=== PATIENT | female | born 1990 | race Two or more races ===

== ENCOUNTER 2016-10-17 09:42 | Inpatient (IN) | payer MEDICAID ==
[~2016-10-17] VITALS: Ht 160 cm; Wt 100.6 kg
[2016-10-17] MEDS ORDERED: SOD CHLORIDE 0.9% 1,000 ML IV STA (11:14)
[2016-10-17] MEDS ORDERED: ONDANSETRON 4 MG INJ IV STA (11:14)
[2016-10-17] MEDS ORDERED: DEXTROSE 5%-0.9% NACL 1,000 ML IV STA (11:15)
[2016-10-17 11:48] LABS: ADD SCAN DIFF NO
[2016-10-17 11:52] LABS: BASOPHILS % 0.1 % (0.0-2.0); EOSINOPHILS % 0.3 % (0.0-7.0); HEMATOCRIT 41.8 % (37.0-47.0); HEMOGLOBIN 14.4 g/dl (12.0-16.0); LYMPHOCYTES # 2.3 10^3/ul (0.8-2.9); LYMPHOCYTES % 22.7 % (15.0-51.0); MEAN CORPUSCULAR HEMOGLOBIN 28.2 pg (29.0-33.0); MEAN CORPUSCULAR HGB CONC 34.4 g/dl (32.0-37.0); MEAN CORPUSCULAR VOLUME 81.8 fl (82.0-101.0); MEAN PLATELET VOLUME 9.1 fl (7.4-10.4); MONOCYTE # 0.6 10^3/ul (0.3-0.9); MONOCYTES % 6.4 % (0.0-11.0); PLATELET COUNT 261 10^3/UL (140-415); RED BLOOD COUNT 5.11 10^6/ul (4.20-5.40); RED CELL DISTRIBUTION WIDTH 13.1 % (11.5-14.5); WHITE BLOOD COUNT 9.9 10^3/ul (4.8-10.8)
[2016-10-17 11:53] LABS: ADD UMIC YES; URINE BILIRUBIN (Dip) NEGATIVE (NEGATIVE); URINE BLOOD (Dip) 1+ (NEGATIVE); URINE COLOR LT. YELLOW (YELLOW); URINE GLUCOSE (Dip) NEGATIVE (NEGATIVE); URINE KETONES (Dip) NEGATIVE (NEGATIVE); URINE LEUKOCYTE ESTERASE (Dip) NEGATIVE (NEGATIVE); URINE NITRITE (Dip) NEGATIVE (NEGATIVE); URINE TOTAL PROTEIN (Dip) NEGATIVE (NEGATIVE); URINE UROBILINOGEN (Dip) 0.2 E.U./dL (0.1-1.0)
--- NOTE | 2016-10-17 12:01 | RADRPT ---
PROCEDURE: US OB. CLINICAL INDICATION: Vomiting TECHNIQUE: Transabdominal views of the pelvis are available for review. COMPARISON: No prior studies are available for comparison. FINDINGS: There is a single intrauterine gestation with the crown-rump length measuring 2.0 cm and the gestati onal sac measuring 3.9 cm, corresponding to a gestational age of 9 weeks and 0 days. The heart rate is noted at 171 bpm. The ovaries are normal in size and echogenicity. The right ovary measures 3.0 x 1.6 x 2.0 cm. The left ovary measures 4.3 x 2.2 x 3.1 cm. There is no free fluid. RPTAT: AA IMPRESSION: Single live intrauterine with an estimated gestational age of 9 weeks and 0 days, based on ultrasound measurements. LIAM based on ultrasound measurements is 05/22/2017. .James Garcia MD, Date Time Electronically viewed and signed by .James Garcia MD, on 10/17/2016 12:01 .S/
[2016-10-17 12:19] LABS: URINE RBCS 0-2 /HPF (0)
[2016-10-17 12:20] LABS: BACTERIA,URINE FEW
[2016-10-17 12:21] LABS: ALBUMIN/GLOBULIN RATIO 1.11; BILIRUBIN,INDIRECT 0.1 mg/dl (0-1.1); BILIRUBIN,TOTAL 0.1 mg/dl (0.2-1.3); CREATININE 0.4 mg/dl (0.44-1.00); POTASSIUM 3.9 mmol/L (3.5-5.1); TOTAL PROTEIN 7.6 g/dl (6.1-8.1)
[2016-10-17] MEDS ORDERED: ACETAMINOPHEN 325 MG TAB PO PRN (13:30)
[2016-10-17] MEDS ORDERED: ONDANSETRON 4 MG INJ IV PRN (13:30)
--- NOTE | 2016-10-17 13:54 | ERA ---
ER Documentation Chief Complaint Date/Time DATE: 10/17/16 TIME: 13:52 Chief Complaint 8 weeks with vomiting HPI Patient is a 18-year-old female with previous hyperemesis who presents with hyperemesis. The patient says that she has been vomiting for the past 2 weeks. She says that she is approximately 8 weeks . She was taking Zofran and Keflex recently but is still having vomiting. She cannot keep even fluids down. She is a and had vomiting with the previous 2 pregnancies as well. Upon review of old medical records the patient one previous visit to the ER in 2008. She does not know the name of her primary doctor. ROS All systems reviewed and are negative except as per history of present illness. Allergies Allergies: Coded Allergies: No Known Allergy (Unverified , 10/17/16) PMhx/Soc Medical and Surgical Hx: pt denies Medical Hx, pt denies Surgical Hx Hx Alcohol Use: No Hx Substance Use: No Hx Tobacco Use: No Smoking Status: Never smoker FmHx Family History: diabetes Physical Exam Vitals Vital Signs Date Time Temp Pulse Resp B/P Pulse Ox O2 Delivery O2 Flow Rate FiO2 10/17/16 10:07 98.1 89 18 124/69 99 Physical Exam Const: No acute distress Head: Atraumatic Eyes: Normal Conjunctiva ENT: Normal External Ears, Nose and Mouth. Neck: Full range of motion..~ No meningismus. Resp: Clear to auscultation bilaterally Cardio: Regular rate and rhythm, no murmurs Abd: Soft, non tender, non distended. Normal bowel sounds Skin: No petechiae or rashes Back: No midline or flank tenderness Ext: No cyanosis, or edema Neur: Awake and alert Psych: Normal Mood and Affect Result Diagram: 10/17/16 1130 10/17/16 1130 Results 24 hrs Laboratory Tests Test 10/17/16 11:27 10/17/16 11:30 Urine Color LT. YELLOW Urine Clarity CLEAR Urine pH 7.0 Urine Specific [place] 1.015 Urine Ketones NEGATIVE Urine Nitrite NEGATIVE Urine Bilirubin NEGATIVE Urine Urobilinogen 0.2 E.U./dL Urine Leukocyte Esterase NEGATIVE Urine Microscopic RBC 0-2/HPF Urine Microscopic WBC 2-5/HPF Urine Bacteria FEW Urine Yeast FEW Urine Hemoglobin 1+ Urine Glucose NEGATIVE% Urine Total Protein NEGATIVE White Blood Count 9.910^3/ul Red Blood Count 5.1110^6/ul Hemoglobin 14.4g/dl Hematocrit 41.8% Mean Corpuscular Volume 81.8fl Mean Corpuscular Hemoglobin 28.2pg Mean Corpuscular Hemoglobin Concent 34.4g/dl Red Cell Distribution Width 13.1% Platelet Count 49293^3/UL Mean Platelet Volume 9.1fl Neutrophils % 70.0% Lymphocytes % 22.7% Monocytes % 6.4% Eosinophils % 0.3% Basophils % 0.1% Nucleated Red Blood Cells % 0.0/100WBC Neutrophils # 7.010^3/ul Lymphocytes # 2.310^3/ul Monocytes # 0.610^3/ul Eosinophils # 0.010^3/ul Basophils # 0.010^3/ul Nucleated Red Blood Cells # 0.010^3/ul Sodium Level 135mmol/L Potassium Level 3.9mmol/L Chloride Level 106mmol/L Carbon Dioxide Level 21mmol/L Anion Gap 12 Blood Urea Nitrogen 6mg/dl Creatinine 0.40mg/dl Glucose Level 103mg/dl Calcium Level 9.0mg/dl Total Bilirubin 0.1mg/dl Direct Bilirubin 0.00mg/dl Indirect Bilirubin 0.1mg/dl Aspartate Amino Transf (AST/SGOT) 20IU/L Alanine Aminotransferase (ALT/SGPT) 45IU/L Alkaline Phosphatase 55IU/L Total Protein 7.6g/dl Albumin 4.0g/dl Globulin 3.60g/dl Albumin/Globulin Ratio 1.11 Lipase 29U/L Beta HCG, Quantitative 662635.0mIU/ml Current Medications Medications (Trade) Dose Ordered Sig/Tyler Route PRN Reason Start Time Stop Time Status Last Admin Dose Admin Sodium Chloride (NS) 1,000 ml @ 1,000 mls/hr Q1H STAT IV 10/17/16 11:14 10/17/16 12:13 DC 10/17/16 11:43 Ondansetron HCl 4 mg 4 mg ONCE STAT IV 10/17/16 11:14 10/17/16 11:16 DC 10/17/16 11:42 Dextrose/Sodium Chloride (D5-NS) 1,000 ml @ 500 mls/hr Q2H STAT IV 10/17/16 11:15 10/17/16 13:14 DC 10/17/16 11:15 Ondansetron HCl (Zofran Inj) 4 mg BRIDGE ORDER PRN IV NAUSEA AND/OR VOMITING 10/17/16 13:30 10/18/16 13:29 Acetaminophen (Tylenol Tab) 650 mg ER BRIDGE PRN PO MILD PAIN/FEVER 10/17/16 13:30 10/18/16 13:29 Procedures/MDM Ultrasound shows a intrauterine per radiology. Patient is a 26-year-old female presents with acute hyperemesis gravidarum. Laboratory studies are basically normal but the patient has failed outpatient treatment at this time. She has already using Zofran at home and is unable to keep down fluids. She has no signs of preeclampsia or HELLP syndrome at this time. I spoke with Dr. Acosta who is the laborist military communications specialist who will admit the patient to a medical surgical bed. The patient was given normal saline and D5 normal saline for fluid resuscitation and was also given Zofran IV. I doubt sepsis, appendicitis, or bowel obstruction. Departure Diagnosis: Primary Impression: Hyperemesis gravidarum Additional Impression: Vomiting Qualified Code: R11.2 - Intractable vomiting with nausea, unspecified vomiting type Condition: DON Dunn MD October 17, 2016 13:54
[2016-10-17 16:10] VITALS: TEMP 98.7
[2016-10-17 17:03] VITALS: Ht 160 cm; Wt 100.6 kg
[2016-10-17 18:57] VITALS: BP 116/56; PULSE 84
[2016-10-17] MEDS: DEXTROSE 5%-LR 1,000 ML IV SCH (19:32)
--- NOTE | 2016-10-17 19:34 | CONS ---
Date/Time of Note Date/Time of Note DATE: 10/17/16 TIME: 19:26 Consultation Date/Type/Reason Admit Date/Time October 17, 2016 Hospital consult and admission Reason for Consultation This patient is a 26 years old 3 para 2 who is about 9 weeks came into the emergency room complaining of nausea and vomiting for 2 weeks her EDC according to her is 06/01/2017 she also has been taking Keflex 500 mg 3 times daily for 10 days ,for her urinary tract infection.. She has not been taking her antibiotic for the past 3 days due to nausea and vomiting In reviewing her past medical history ;she had 2 section in the past also she has tummy tuck (abdominoplasty) in 2008. She also developed urinary tract infection 5 years ago for which she was hospitalized for 8 days Other than that her past medical history is not remarkable. As I mentioned she had a same nausea and vomiting during the past 2 pregnancies as well Allergies ; she does not give any history of allergy to any medication Family history not contributory. On physical examination she is a well-developed well-nourished lady Laboratory Tests Test 10/17/16 11:27 10/17/16 11:30 Urine Color LT. YELLOW Urine Clarity CLEAR Urine pH 7.0 Urine Specific [place] 1.015 Urine Ketones NEGATIVE Urine Nitrite NEGATIVE Urine Bilirubin NEGATIVE Urine Urobilinogen 0.2 E.U./dL Urine Leukocyte Esterase NEGATIVE Urine Microscopic RBC 0-2/HPF Urine Microscopic WBC 2-5/HPF Urine Bacteria FEW Urine Yeast FEW Urine Hemoglobin 1+ Urine Glucose NEGATIVE% Urine Total Protein NEGATIVE White Blood Count 9.910^3/ul Red Blood Count 5.1110^6/ul Hemoglobin 14.4g/dl Hematocrit 41.8% Mean Corpuscular Volume 81.8fl Mean Corpuscular Hemoglobin 28.2pg Mean Corpuscular Hemoglobin Concent 34.4g/dl Red Cell Distribution Width 13.1% Platelet Count 47466^3/UL Mean Platelet Volume 9.1fl Neutrophils % 70.0% Lymphocytes % 22.7% Monocytes % 6.4% Eosinophils % 0.3% Basophils % 0.1% Nucleated Red Blood Cells % 0.0/100WBC Neutrophils # 7.010^3/ul Lymphocytes # 2.310^3/ul Monocytes # 0.610^3/ul Eosinophils # 0.010^3/ul Basophils # 0.010^3/ul Nucleated Red Blood Cells # 0.010^3/ul Sodium Level 135mmol/L Potassium Level 3.9mmol/L Chloride Level 106mmol/L Carbon Dioxide Level 21mmol/L Anion Gap 12 Blood Urea Nitrogen 6mg/dl Creatinine 0.40mg/dl Glucose Level 103mg/dl Calcium Level 9.0mg/dl Total Bilirubin 0.1mg/dl Direct Bilirubin 0.00mg/dl Indirect Bilirubin 0.1mg/dl Aspartate Amino Transf (AST/SGOT) 20IU/L Alanine Aminotransferase (ALT/SGPT) 45IU/L Alkaline Phosphatase 55IU/L Total Protein 7.6g/dl Albumin 4.0g/dl Globulin 3.60g/dl Albumin/Globulin Ratio 1.11 Lipase 29U/L Beta HCG, Quantitative 978708.0mIU/ml Current Medications Medications (Trade) Dose Ordered Sig/Tyler Route PRN Reason Start Time Stop Time Status Last Admin Dose Admin Sodium Chloride (NS) 1,000 ml @ 1,000 mls/hr Q1H STAT IV 10/17/16 11:14 10/17/16 12:13 DC 10/17/16 11:43 1,000 MLS/HR Ondansetron HCl 4 mg 4 mg ONCE STAT IV 10/17/16 11:14 10/17/16 11:16 DC 10/17/16 11:42 4 MG Dextrose/Sodium Chloride (D5-NS) 1,000 ml @ 500 mls/hr Q2H STAT IV 10/17/16 11:15 10/17/16 13:14 DC 10/17/16 11:15 500 MLS/HR Ondansetron HCl (Zofran Inj) 4 mg BRIDGE ORDER PRN IV NAUSEA AND/OR VOMITING 10/17/16 13:30 10/17/16 17:45 DC 10/17/16 14:13 4 MG Acetaminophen 650 mg 650 mg ER BRIDGE PRN PO MILD PAIN/FEVER 10/17/16 13:30 10/17/16 17:45 DC Dextrose/Lactated Ringer's (D5-Lr) 1,000 ml @ 150 mls/hr Q6H40M IV 10/17/16 18:00 Subjective hx not possible: pt non-verbal Constitutional: No chills, No diaphoresis, No disoriented, No febrile, No improved, No no complaints, No other, No poor po, No requiring IVF, No requiring O2 Eyes: No discharge, No no complaints, No other, No pain, No redness, No visual change ENT: No bleeding, No congestion, No discharge, No dysphagia, No no complaints, No other, No pain, No sore throat Respiratory: No cough, No no complaints, No other, No pain, No pleuritic pain, No shortness of breath, No sputum, No wheezing Cardiovascular: No chest pain, No edema, No lightheadedness, No no complaints, No orthopenea, No other, No palpitations, No paroxysmal nocturnal dyspnea Gastrointestinal: other (As I mentioned she had fairly severe nausea with occasional vomiting but for the past year she is able to tolerate food), No blood, No constipation, No decreased appetite, No diarrhea, No flatus, No nausea, No no complaints, No pain, No passing stool, No vomiting Genitourinary: other (No pelvic exam done), No bleeding, No discharge, No dysuria, No flank pain, No hematuria, No no complaints Musculoskeletal: No back pain, No bone/joint pain, No neck pain, No no complaints, No other, No restricted range of motion, No swelling Skin: No bruising, No erythema, No laceration, No no complaints, No other, No pruritis, No rash, No skin lesions Neurologic: No confusion, No dizziness, No focal-weakness, No headache, No no complaints, No other, No seizure, No syncope Endocrine: No dry skin, No no complaints, No other, No polydypsia, No polyuria , No temp intolerance Lymphatic: No adenopathy, No lymphadema, No no complaints, No other, No tender nodes Psychological: No anxiety, No confusion, No depression, No nl mood/affect, No no complaints, No other, No suicidal Additional Comments Her lab studies including electrolytes and liver function tests are within normal limits. Her ultrasound study as I mentioned reported live 9 weeks intrauterine with normal pelvic structures including the uterus and ovaries and tubes. Impression: With diagnosis of hyperemesis gravidarum she was placed on IV and Zofran. We will add other antiepileptic medication if necessary Social History Smoking Status: Never smoker Exam/Review of Systems Vital Signs Vitals Vital Signs Date Time Temp Pulse Resp B/P Pulse Ox O2 Delivery O2 Flow Rate FiO2 10/17/16 18:57 98.5 84 116/56 100 Room Air 10/17/16 16:10 18 Results Result Diagram: 10/17/16 1130 10/17/16 1130 Results 24 hrs Laboratory Tests Test 10/17/16 11:27 10/17/16 11:30 Urine Color LT. YELLOW Urine Clarity CLEAR Urine pH 7.0 Urine Specific [place] 1.015 Urine Ketones NEGATIVE Urine Nitrite NEGATIVE Urine Bilirubin NEGATIVE Urine Urobilinogen 0.2 E.U./dL Urine Leukocyte Esterase NEGATIVE Urine Microscopic RBC 0-2 Urine Microscopic WBC 2-5 Urine Bacteria FEW Urine Yeast FEW Urine Hemoglobin 1+ H Urine Glucose NEGATIVE Urine Total Protein NEGATIVE White Blood Count 9.9 Red Blood Count 5.11 Hemoglobin 14.4 Hematocrit 41.8 Mean Corpuscular Volume 81.8 L Mean Corpuscular Hemoglobin 28.2 L Mean Corpuscular Hemoglobin Concent 34.4 Red Cell Distribution Width 13.1 Platelet Count 261 Mean Platelet Volume 9.1 Neutrophils % 70.0 Lymphocytes % 22.7 Monocytes % 6.4 Eosinophils % 0.3 Basophils % 0.1 Nucleated Red Blood Cells % 0.0 Neutrophils # 7.0 Lymphocytes # 2.3 Monocytes # 0.6 Eosinophils # 0.0 Basophils # 0.0 Nucleated Red Blood Cells # 0.0 Sodium Level 135 Potassium Level 3.9 Chloride Level 106 Carbon Dioxide Level 21 Anion Gap 12 Blood Urea Nitrogen 6 L Creatinine 0.40 L Glucose Level 103 Calcium Level 9.0 Total Bilirubin 0.1 L Direct Bilirubin 0.00 Indirect Bilirubin 0.1 Aspartate Amino Transf (AST/SGOT) 20 Alanine Aminotransferase (ALT/SGPT) 45 Alkaline Phosphatase 55 Total Protein 7.6 Albumin 4.0 Globulin 3.60 H Albumin/Globulin Ratio 1.11 Lipase 29 Beta HCG, Quantitative 486788.0 Medications Medications Current Medications Dextrose/Lactated Ringer's (D5-Lr) 1,000 ml @ 150 mls/hr Q6H40M IV ; Start at 18:00 ADORE UNDERWOOD MD October 17, 2016 19:34
[2016-10-17 19:49] VITALS: BP 113/64; RESP 18
[2016-10-17] MEDS: ONDANSETRON 4 MG INJ IV PRN (22:46)
[2016-10-18] MEDS: DEXTROSE 5%-LR 1,000 ML IV SCH ×4 (02:13→20:41)
[2016-10-18] MEDS: ONDANSETRON 4 MG INJ IV PRN ×2 (06:31→13:25)
[2016-10-18 08:00] VITALS: BP 112/51; RESP 18
[2016-10-18 08:07] VITALS: BP 135/57; RESP 16
[2016-10-18] MEDS ORDERED: ONDANSETRON 4 MG TAB PO PRN (13:30)
--- NOTE | 2016-10-18 15:02 | PN ---
Date/Time of Note Date/Time of Note DATE: 10/18/16 TIME: 14:57 OB Subjective Subjective Subjective Patient reports is still having moderate to severe nausea and vomiting. She has been on clear liquid diet since yesterday. Receiving Zofran IV as needed nausea and vomiting. Reports history of nausea vomiting and all prior pregnancies. Patient complained that clear liquid diet worsened her symptoms. She denies any vaginal bleeding, abdominal pain, denies any other complaints. Denies any known history of thyroid disorder in the past. OB Objective Objective Objective General appearance alert and oriented 4. Patient is in moderate distress due to constant nausea: Abdomen: Soft, nontender, no rebound tenderness, no guarding no rigidity Hematology - 72 Hrs Test 10/17/16 11:30 White Blood Count 9.910^3/ul (4.8-10.8) Red Blood Count 5.1110^6/ul (4.20-5.40) Hemoglobin 14.4g/dl (12.0-16.0) Hematocrit 41.8% (37.0-47.0) Mean Corpuscular Volume 81.8fl (82.0-101.0) L Mean Corpuscular Hemoglobin 28.2pg (29.0-33.0) L Mean Corpuscular Hemoglobin Concent 34.4g/dl (32.0-37.0) Red Cell Distribution Width 13.1% (11.5-14.5) Platelet Count 33145^3/UL (140-415) Mean Platelet Volume 9.1fl (7.4-10.4) Neutrophils % 70.0% (39.0-77.0) Lymphocytes % 22.7% (15.0-51.0) Monocytes % 6.4% (0.0-11.0) Eosinophils % 0.3% (0.0-7.0) Basophils % 0.1% (0.0-2.0) Nucleated Red Blood Cells % 0.0/100WBC (0.0-0.0) Neutrophils # 7.010^3/ul (1.6-7.5) Lymphocytes # 2.310^3/ul (0.8-2.9) Monocytes # 0.610^3/ul (0.3-0.9) Eosinophils # 0.010^3/ul (0.0-0.5) Basophils # 0.010^3/ul (0.0-0.1) Nucleated Red Blood Cells # 0.010^3/ul (0.0-0.0) Chemistry Test 10/17/16 11:30 Sodium Level 135mmol/L (135-144) Potassium Level 3.9mmol/L (3.5-5.1) Chloride Level 106mmol/L (97-110) Carbon Dioxide Level 21mmol/L (21-31) Anion Gap 12 (8-16) Blood Urea Nitrogen 6mg/dl (7-20) L Creatinine 0.40mg/dl (0.44-1.00) L Glucose Level 103mg/dl (70-220) Calcium Level 9.0mg/dl (8.4-10.2) Total Bilirubin 0.1mg/dl (0.2-1.3) L Direct Bilirubin 0.00mg/dl (0.00-0.20) Indirect Bilirubin 0.1mg/dl (0-1.1) Aspartate Amino Transf (AST/SGOT) 20IU/L (15-46) Alanine Aminotransferase (ALT/SGPT) 45IU/L (13-69) Alkaline Phosphatase 55IU/L (42-121) Total Protein 7.6g/dl (6.1-8.1) Albumin 4.0g/dl (3.3-4.9) Globulin 3.60g/dl (1.3-3.2) H Albumin/Globulin Ratio 1.11 Lipase 29U/L (23-300) Beta HCG, Quantitative 137604.0mIU/ml Hepatic Panel - 28 Hours Test 10/17/16 11:30 Alanine Aminotransferase (ALT/SGPT) 45IU/L (13-69) Albumin 4.0g/dl (3.3-4.9) Alkaline Phosphatase 55IU/L (42-121) Aspartate Amino Transf (AST/SGOT) 20IU/L (15-46) Direct Bilirubin 0.00mg/dl (0.00-0.20) Total Bilirubin 0.1mg/dl (0.2-1.3) L Total Protein 7.6g/dl (6.1-8.1) OB Assessment/Plan Other Assessment: Assessment: IUP at 9+ weeks by ultrasound Hyperemesis gravidarum, admitted due to persistent nausea and vomiting. Could not tolerate p.o. well Currently receiving Zofran IV Diet will be changed to BRAT . Discussed with the patient frequent meals about 6 times per day small portions with snacks, prior to feel hungry She can take fluids small in between. [place] and carbonated fluids will potentially help with her symptoms Doxylamine/pyridoxine ordered if available by pharmacy 2 tablets nightly and 1 tablet a.m., if the symptoms persist for the next couple of days may increase to 2 tablets nightly 1 tablet a.m. and 1 tablet in the midday and afternoon this depends on the pharmacies availability of these prescription, otherwise continue Zofran IV and switch to p.o. when she tolerates diet as above recommend to see safety assistant as well while in-house [place] diet discussed with the patient TFT labs ordered. Pending rule out thyroid disorder, continue expectant management with above instructions RONALDO BRAMBILA MD October 18, 2016 15:02
[2016-10-18] MEDS: [UNRECOGNIZED DRUG - REMARK] XX SCH (16:00)
[2016-10-18 19:48] VITALS: BP 118/72; RESP 18
[2016-10-18] MEDS ORDERED: SPECIAL NON-STANDARD MEDICATION PO SCH (21:00)
[2016-10-19] MEDS: ONDANSETRON 4 MG INJ IV PRN ×2 (05:48→11:46)
[2016-10-19] MEDS: DEXTROSE 5%-LR 1,000 ML IV SCH ×4 (05:54→16:40)
[2016-10-19 07:43] VITALS: BP 124/59; RESP 18
[2016-10-19] MEDS: [UNRECOGNIZED DRUG - REMARK] XX SCH ×3 (08:00→16:00)
--- NOTE | 2016-10-19 16:47 | QN ---
Documentation Comment October 19, 2016 Hospital visit: Current Medications Medications (Trade) Dose Ordered Sig/Tyler Route PRN Reason Start Time Stop Time Status Last Admin Dose Admin Sodium Chloride (NS) 1,000 ml @ 1,000 mls/hr Q1H STAT IV 10/17/16 11:14 10/17/16 12:13 DC 10/17/16 11:43 Ondansetron HCl 4 mg 4 mg ONCE STAT IV 10/17/16 11:14 10/17/16 11:16 DC 10/17/16 11:42 Dextrose/Sodium Chloride (D5-NS) 1,000 ml @ 500 mls/hr Q2H STAT IV 10/17/16 11:15 10/17/16 13:14 DC 10/17/16 11:15 Ondansetron HCl (Zofran Inj) 4 mg BRIDGE ORDER PRN IV NAUSEA AND/OR VOMITING 10/17/16 13:30 10/17/16 17:45 DC 10/17/16 14:13 Acetaminophen 650 mg 650 mg ER BRIDGE PRN PO MILD PAIN/FEVER 10/17/16 13:30 10/17/16 17:45 DC Dextrose/Lactated Ringer's (D5-Lr) 1,000 ml @ 150 mls/hr Q6H40M IV 10/17/16 18:00 10/19/16 14:05 Ondansetron HCl (Zofran Inj) 4 mg Q6H PRN IV NAUSEA AND/OR VOMITING 10/17/16 23:00 10/19/16 11:46 Ondansetron HCl (Zofran Tab) 4 mg Q4H PRN PO NAUSEA AND/OR VOMITING 10/18/16 13:30 Non-Formulary Medication 1 ea TID PO 10/18/16 21:00 UNV Miscellaneous Information (*Order Clarification Bulletin) MEDICATION REQUIRES CLARIFICATION: Q8H XX 10/18/16 16:00 Cephalexin (Keflex) 500 mg Q6 PO 10/19/16 18:00 UNV round This patient is a 26 years old 3 para 2 who is about 9 weeks came into the emergency room complaining of nausea and vomiting for 2 weeks . In the hospital she was placed on Zofran IV hydration. She improved quite a bit . Today which is the second day of hospitalization ,she basically does not have any vomiting. Very little nausea Her urine culture showed beta strep. As I mentioned in her previous note she was on Keflex for urinary tract infection for few days but she stopped taking the antibiotic for 3 days. We will start this antibiotic again. If she continues to improve she would be able to be discharged home to be followed by her membership sales representative. ADORE UNDERWOOD MD Oct 19, 2016 16:47
--- NOTE | 2016-10-19 17:17 | QN ---
ADORE UNDERWOOD MD Oct 19, 2016 16:47
[2016-10-19] MEDS: CEPHALEXIN 500 MG CAP PO SCH (18:56)
[2016-10-19 19:45] VITALS: BP 120/60; RESP 18
[2016-10-20] MEDS: CEPHALEXIN 500 MG CAP PO SCH ×2 (00:46→05:22)
[2016-10-20] MEDS: ONDANSETRON 4 MG INJ IV PRN (06:02)
[2016-10-20 08:11] VITALS: BP 119/69; RESP 18
--- NOTE | 2016-10-20 10:20 | PD.PPDC ---
TECHNICAL INFORMATION SPECIALIST Discharge Instruction Follow-up Follow-up with Physician: 3, Day/Days Provider Information: follow up with your obgyn within one week TOO SAMUELS MD Oct 20, 2016 10:20
--- NOTE | 2016-10-20 11:56 | DS ---
DATE OF ADMISSION: 10/17/2016 DATE OF DISCHARGE: 10/20/2016 DISCHARGE DIAGNOSES: 1. Hyperemesis gravidarum, resolved. 2. Intrauterine at 9 weeks. HISTORY AND HOSPITAL COURSE: The patient is a 26-year-old, G3, P2, who presents at 9 weeks, complai rachael of nausea and vomiting. The patient at this point was admitted for nausea and vomiting managem ent. Upon admission, the patient's white count was normal. Hemoglobin is normal. Chemistry normal with a normal potassium, sodium and creatinine. Lipase, TSH, free T4 all within normal limits. Ur ine also within normal limits. Ultrasound done shows intrauterine at 9 weeks. The patien t was continued on Zofran, Pepcid and IV fluids. On discharge, the patient is feeling better. No n ausea, no longer vomiting. Patient is able to tolerate a diet. The patient at this point will be d ischarged home. Follow up with [facility] within 1 week. The patient will be discharged home on Pepcid and Zofran. The patient is stable upon discharge. Dictated By: TOO SAMUELS MD /NTS Conf#: [id number] DID#: [id number]
== END 2016-10-20 11:10 | disposition home or self-care (01) | DRG 781 ==
LOC: FTE 09:42 → MS2 13:21
DX: O21.0 Mild hyperemesis gravidarum (principal); O23.41 Unspecified infection of urinary tract in pregnancy, first trimester; Z3A.08 8 weeks gestation of pregnancy; Z87.440 Personal history of urinary (tract) infections
CPT/HCPCS: 36415; 76801; 80053; 81001; 83690; 84439; 84443; 84702; 85025; 86900; 86901; 87086; 96374; 96375; J2405; J7030; J7042; J7121

== ENCOUNTER 2018-11-15 21:40 | Emergency (ER) | payer MEDICAID ==
[~2018-11-15] VITALS: Ht 162.6 cm; Wt 102.6 kg
[2018-11-15 21:44] VITALS: BP 133/84; PULSE 78; RESP 16; Ht 162.6 cm; Wt 102.6 kg
[2018-11-15] MEDS ORDERED: ACETAMINOPHEN 500 MG TAB PO STA (23:17)
[2018-11-15] MEDS ORDERED: LIDOCAINE 1%/EPI (MDV) 50 ML INJ INJ ONE (23:30)
[2018-11-16] MEDS ORDERED: IBUP-1561 PO (00:26)
[2018-11-16] MEDS ORDERED: LIDOCAINE 1%/EPI 30 ML INJ INJ ONE (00:30)
--- NOTE | 2018-11-16 00:55 | ERD ---
ER Documentation Chief Complaint Chief Complaint Pt reports she ran into door, has lac over R eyebrow HPI 28-year-old female presented to ED for laceration of her right eyebrow. Patient states she was in the shower and she banged her head on the sliding glass door. Patient denies passing out denies loss of consciousness denies dizziness headache blurred vision. Patient denies any allergies to medication and states that she had a tetanus shot within the last year. Patient denies taking any current medications denies any medical conditions. ROS All systems reviewed and are negative except as per history of present illness. Medications Home Meds Active Scripts Ibuprofen* (Motrin*) 400 Mg Tab, 400 MG PO Q6, #30 TAB Prov:MADHU OSBORNE PA-C 11/16/18 Allergies Allergies: Coded Allergies: No Known Allergy (Unverified , 10/17/16) PMhx/Soc History of Surgery: Yes ( (August 2003 and August 2008), tummy tuck (Apr 2009)) Anesthesia Reaction: Yes (August 2008) Hx Neurological Disorder: Yes (Seizure with labor in ) Hx Respiratory Disorders: No Hx Cardiac Disorders: Yes (Preeclampsia in ) Hx Psychiatric Problems: No Hx Miscellaneous Medical Probl: No Hx Alcohol Use: No Hx Substance Use: No Hx Tobacco Use: No Smoking Status: Never smoker FmHx Family History: No diabetes, No coronary disease, No other Physical Exam Vitals Vital Signs Date Temp Pulse Resp B/P (MAP) Pulse Ox O2 O2 Flow FiO2 Time Delivery Rate 11/15/18 98.3 78 16 133/84 100 21:44 (100) Physical Exam Const: No acute distress Head: 3 cm laceration over her right lateral eyebrow Eyes: Normal Conjunctiva ENT: Normal External Ears, Nose and Mouth. Neck: Full range of motion. No meningismus. Resp: Clear to auscultation bilaterally Cardio: Regular rate and rhythm, no murmurs Results 24 hrs Current Medications Medications Dose Sig/Tyler Start Time Status Last (Trade) Ordered Route PRN Stop Time Admin Dose Reason Admin Lidocaine/ 50 ml ONCE ONCE 11/15/18 Cancel Epinephrine INJ 23:30 (Xylocaine 11/15/18 23:31 1%/ Epi (Mdv)) 500 mg ONCE STAT 11/15/18 DC 11/15/18 Acetaminophen PO 23:17 23:58 (Tylenol 11/15/18 23:19 Tab) Lidocaine/ 50 ml ONCE ONCE 11/16/18 DC Epinephrine INJ 00:30 (Xylocaine 11/16/18 00:31 1%/ Epi (Pf)) Procedures/MDM ED course: Acetaminophen for pain Suture repair The patient was stable throughout the ED course. The patient and/or family informed of laboratory and diagnostic imaging results throughout the ED course. Procedures: LACERATION: The patient was verbally consented prior to procedure. Patient was explained the risks, benefits and alternatives to this procedure. Location: Right lateral eyebrow Length: 3 cm Anesthesia: local 1% lidocaine/EPI, 5 cc Inspection: The wound was thoroughly explored and no foreign bodies, deep tissue, tendon or structural injuries were noted. Repair: The area was prepared and draped in the usual sterile manner with the wound exposed. 3 sutures were placed with good wound closure and wound approximation. Bleeding was minimal. The patient tolerated the procedure well with no complications. The wound was dressed with bacitracin and sterile gauze. The patient was neurovascularly intact post-procedure. Post-procedural wound care was discussed with the patient. Medications given in ER: Acetaminophen Patient tolerated medication well with no adverse reactions. Patient reported improvement in pain. Medical decision makin-year-old female presented to ED for a laceration to her right eyebrow that happened while she was in the shower. Patient denies loss of consciousness, sensation of passing out, dizziness, head pain, blurry vision. Patient states she is up-to-date on her tetanus and had one within the last year. Patient's physical exam was remarkable for a 3 cm laceration on the lateral portion of her right eyebrow. Laceration was repaired in a sterile field and was thoroughly irrigated. There is no presence of foreign bodies and the wound was superficial. The wound was closed with 60 nonabsorbable, total of 3 sutures were placed. The wound was bandaged and the patient was given a prescription for ibuprofen. At this time I have low suspicion for concussion, epidural hematoma, skull fracture, foreign body retention, osteomyelitis. patient was advised that if symptoms worsen return to ER immediately or if she experiences any discharge swelling or increased pain in the region. Patient was advised she should return in 2 days for wound check. Patient was advised that the sutures need to be removed in 5 to 7 days. Patient was advised that she can come back to the ER for this or go to her primary care. Patient is in agreement to the treatment plan and had no further questions upon discharge Prescription for home: Motrin Discharge: At this time, patient is stable for discharge and outpatient management. I have instructed the patient to follow-up with his\her primary care physician in 1 to 2 days. I have discussed with the patient the possibility of needing to see a specialist for further work-up and imaging studies if symptoms persist. I have instructed the patient to promptly return to the ER for any new or worsening symptoms including increased pain, fever, nausea, vomiting, weakness or LOC. The patient and\or family expressed understanding of and agreement with this plan. All questions were answered. Home care instructions were provided. Disclaimer: Inadvertent spelling and grammatical errors are likely due to EHR\dictation software use and do not reflect on the overall quality of patient care. Also, please note that the electronic time recorded on the note does not necessarily reflect the actual time of the patient encounter. Departure Diagnosis: Primary Impression: Laceration Condition: Stable Patient Instructions: Laceration, Face (Suture Or Tape) Referrals: [facility] YOU HAVE RECEIVED A MEDICAL SCREENING EXAM AND THE RESULTS INDICATE THAT YOU DO NOT HAVE A CONDITION THAT REQUIRES URGENT TREATMENT IN THE EMERGENCY DEPARTMENT. FURTHER EVALUATION AND TREATMENT OF YOUR CONDITION CAN WAIT UNTIL YOU ARE SEEN IN YOUR DOCTORS OFFICE WITHIN THE NEXT 1-2 DAYS. IT IS YOUR RESPONSIBILITY TO MAKE AN APPOINTMENT FOR FOLOW-UP CARE. IF YOU HAVE A PRIMARY DOCTOR --you should call your primary doctor and schedule an appointment IF YOU DO NOT HAVE A PRIMARY DOCTOR YOU CAN CALL OUR PHYSICIAN REFERRAL HOTLINE AT IF YOU CAN NOT AFFORD TO SEE A PHYSICIAN YOU CAN CHOSE FROM THE FOLLOWING [facility] CLINICS [facility] [address] [facility] [address] [facility] [facility] [address] [facility] [address] [facility] [address] [facility]. [facility]. [address] [facility]. [facility] YOU HAVE RECEIVED A MEDICAL SCREENING EXAM AND THE RESULTS INDICATE THAT YOU DO NOT HAVE A CONDITION THAT REQUIRES URGENT TREATMENT IN THE EMERGENCY DEPARTMENT. FURTHER EVALUATION AND TREATMENT OF YOUR CONDITION CAN WAIT UNTIL YOU ARE SEEN IN YOUR DOCTORS OFFICE WITHIN THE NEXT 1-2 DAYS. IT IS YOUR RESPONSIBILITY TO MAKE AN APPOINTMENT FOR FOLOW-UP CARE. IF YOU HAVE A PRIMARY DOCTOR --you should call your primary doctor and schedule and appointment IF YOU DO NOT HAVE A PRIMARY DOCTOR YOU CAN CALL OUR PHYSICIAN REFERRAL HOTLINE AT . IF YOU CAN NOT AFFORD TO SEE A PHYSICIAN YOU CAN CHOSE FROM THE FOLLOWING [facility] INSTITUTIONS: [facility] [address] [place] [address] [facility] [address] [place] [address] [facility] [address] [place] [address] Additional Instructions: Follow up in 2 days in your clinic for wound check. Follow-up 5 to 7 days for suture removal. Return to ER if symptoms worsen MADHU OSBORNE PA-C Nov 16, 2018 00:55
== END 2018-11-16 00:52 | disposition home or self-care (01) ==
LOC: FTE 21:40
DX: S01.111A Laceration without foreign body of right eyelid and periocular area, initial encounter (principal); W25.XXXA Contact with sharp glass, initial encounter; Y92.9 Unspecified place or not applicable
CPT/HCPCS: 12013; Z7502; Z7610